=== PATIENT | female | born 1990 | race Caucasian/White ===

== ENCOUNTER 2020-10-13 15:30 | Emergency (ER) | payer SELFPAY ==
[~2020-10-13] VITALS: Ht 170.2 cm; Wt 59.1 kg
--- NOTE | 2020-10-13 16:41 | PHYS DOC ---
Adult General HPI HPI Patient is a 30-year-old female presents emergency department complaining of left lower pelvic pain for the past 4 days. Patient also reports a malodorous dark brown discharge for the past 4 days. Patient states the pain started after having unprotected sex. Patient reports her last menstrual period was 2 weeks a go with normal duration of flow. Patient is concerned about sexually transmitted diseases. Patient denies any rashes or lesions in the vaginal area. Patient denies any nausea, vomiting, abdominal pain, chest pain, shortness of breath, recent fever or chills. Patient denies any recent travel. Patient denies any other physical complaints or physical concerns. Patient reports a past medical history of a tubal ligation. Review of Systems Review of Systems 14 body systems of review of systems have been reviewed. See HPI for pertinent positives and negative responses, otherwise all other systems are negative, nonpertinent or noncontributory. Physical Exam Physical Exam Constitutional: Well developed, well nourished, no acute distress, non-toxic appearance. 30-year-old female in no apparent distress. HENT: Normocephalic, atraumatic, bilateral external ears normal, oropharynx moist, no oral exudates, nose normal. Eyes: PERRLA, EOMI, conjunctiva normal, no discharge. Neck: Normal range of motion, no tenderness, supple, no stridor. Cardiovascular:Heart rate regular rhythm, no murmur, heart sounds S1-S2. Lungs & Thorax: Bilateral breath sounds clear to auscultation no adventitious lung sounds appreciated. Abdomen: Bowel sounds normal, soft, no tenderness, no masses, no pulsatile masses. Pain to left lower quadrant area to palpation. See exam. Skin: Warm, dry, no erythema, no rash. Back: No tenderness, no CVA tenderness. Extremities: No tenderness, no cyanosis, no clubbing, ROM intact, no edema. Neurologic: Alert and oriented X 3, normal motor function, normal sensory function, no focal deficits noted. Psychologic: Affect normal, judgement normal, mood normal. : Pelvic exam performed with female registered nurse assistance, no lesions or rashes or abnormalities noted of the external vagina or adjacent structures, no discharge appreciated. Speculum exam noted brown foamy discharge along vaginal wolff, the cervical os was closed, no bleeding from the cervical os appreciated, STI cultures and wet prep obtained. Bimanual exam noted left adnexal tenderness. No right-sided adnexal tenderness appreciated. Patient tolerated pelvic exam procedure well. EKG EKG [] Radiology/Procedures Radiology/Procedures PATIENT: JESSICA GARG ACCOUNT: [id number] : 1990 LOCATION: ER AGE: 30 SEX: F EXAM STATUS: REG ER ORD. PHYSICIAN: JANETT AARON APRN REASON: LT PELVIC PAIN PROCEDURE: US PELVIS W/TV INDICATION: Reason: LT PELVIC PAIN / Spl. Instructions: / History: . Last menstrual period was 10/02/2020. COMPARISON: None available. TECHNIQUE: Transabdominal and endovaginal sonography was performed FINDINGS: The uterus measures 9.7 x 4.8 x 3.9 cm. The endometrium measures 0.5 cm on endovaginal images. There is no focal myometrial abnormality The right ovary measures 3.6 x 3.1 x 2.2 cm on endovaginal images. The left ovary measures 4 x 3.3 x 2.2 cm on endovaginal images. Flow seen to both ovaries. No evidence for ovarian torsion. Scattered follicles are seen bilaterally. Some of these small follicles are peripherally, PCOS is a consideration. There is trace free fluid. IMPRESSION: 1. No evidence for ovarian torsion. 2. Trace free fluid possibly physiologic. 3. Scattered follicles within the ovaries bilaterally, some of which are peripheral, may be seen with PCOS. Electronically signed by: Meng Quach MD (10/13/2020 5:41 PM) [facility] DICTATED AND SIGNED BY: MENG QUACH MD DATE: 10/13/20 173 CC: JANETT AARON APRN; PCP,NO ~MTH0 0 Heart Score C/O Chest Pain: No Risk Factors: Risk Factors: DM, Current or recent (<one month) smoker, HTN, HLP, family hi story of CAD, obesity. Risk Scores: Risk Factors: DM, Current or recent (<one month) smoker, HTN, HLP, family history of CAD, obesity. Course & Med Decision Making Course & Med Decision Making Pertinent Labs and Imaging studies reviewed. (See chart for details) 30-year-old female, vital signs reviewed, presents emergency department concerning left lower pelvic pain for the past 4 days. Physical exam concerning for STI versus PID versus left-sided ovarian torsion versus UTI. ER exam to rule out STIs/ovarian torsion/UTI/PID was initiated. Patient's pelvic exam concerning for PID. Malodorous dark brown foamy discharge along vaginal canal appreciated, STI cultures and wet prep were obtained and sent to lab. Wet prep did not reveal trichomonas, yeast, or clue cells, however related to patient's symptoms, malodorous discharge, and physical presentation during pelvic exam will start on Flagyl to treat PID. Will treat patient for gonorrhea/chlamydia related to patient's unprotected sex and high risk sexual practices along with physical presentation during pelvic exam. Patient's urine was infected with positive leukocyte esterase and nitrites. Will treat for UTI. Discussed with patient findings of pelvic examination, and positive urinary tract infection. Discussed with patient will treat for gonorrhea chlamydia in the emergency department, discussed with patient need for her to contact sexual partners to have them treated as well. Patient gave verbal understanding of discharge home instructions, safe sex practices, prescription medication for gonorrhea/chlamydia/PID/UTIs, follow-up with primary care soon for reevaluation of UTI symptoms. Return to ER precautions and concerns, patient was discharged home without incident. Dragon Disclaimer Dragon Disclaimer This electronic medical record was generated, in whole or in part, using a voice recognition dictation system. Departure Departure: Impression: Primary Impression: Pelvic inflammatory disease Additional Impressions: Sexually transmitted infection Urinary tract infection High risk sexual behavior Pelvic pain Abnormal abdominal ultrasound Disposition: HOME / SELF CARE / HOMELESS Condition: GOOD Referrals: PCP,JUAN (PCP) JOSSUE VINSON Patient Instructions: Urinary Tract Infection Additional Instructions: You are seen today in the emergency department for pelvic pain. A ultrasound w as performed of your pelvis transvaginally. There were no concerning findings of an ovarian torsion or ectopic , however there were signs of PCOS, I encourage you to follow-up with a [facility] for further investigation as this may be causing your pelvic pains. However, there were signs of sexually transmitted diseases, you were treated for gonorrhea and chlamydia today along with pelvic inflammatory disease. I encourage you to practice safe barrier protective sex, please contact your sexual partners to have them treated for sexually transmitted diseases. I have treated you today in the emergency department for gonorrhea and chlamydia along with sending prescriptions to [facility] here in [place] for antibiotics to cover PID, a urinary tract infection, and chlamydia. Please fill them and take them as directed. Please follow-up with your primary care doctor for reevaluation of symptoms, if you are unable to obtain a appointment with your primary care physician, I have provided PAULA Quintero for follow-up primary care. Please return to the emergency department for worsening symptoms or other concerns. EMERGENCY DEPARTMENT GENERAL DISCHARGE INSTRUCTIONS Thank you for coming to [facility] (ED) today and trusting us with you care. We trust that you had a positivie experience in our Emergency Department. If you wish to speak to the department management, you may call the director at [phone]. YOUR FOLLOW UP INSTRUCTIONS ARE FOLLOWS: 1. Do you have a private Doctor? If you do not have a private doctor, please ask for a resource list of physicians or clinics that may be able to assist you with follow up care. 2. The Emergency Physician has interpreted your x-rays. The X-Ray specialist will also review them. If there is a change in the findings, you will be notified in 48 hours when at all possible. 3. A lab test or culture has been done, your results will be reviewed and you will be notified if you need a change in treatment. ADDITIONAL INSTRUCTIONS AND INFORMATION: 1. Your care today has been supervised by a physician who is specially trained in emergency care. Many problems require more than one evaluation for a complete diagnosis and treatment. We recommend that you schedule your follow up appointment as recommended to ensure complete treatment of you illness or injury. If you are unable to obtain follow up care and continue to have a problem, or if your condition worsens, we recommend that you return to the ED. 2. We are not able to safely determine your condition over the phone nor are we able to give sound medical advice over the phone. For these safety reasons, if you call for medical advice we will ask you to come to the ED for further evaluation. 3. If you have any questions regarding these discharge instructions please call the ED at [phone]. SAFETY INFORMATION: In the interest of safety, wellness, and injury prevention; we encourage you to wear your sealbelt, if you smoke; quite smoking, and we encourage family to use a protective helmet for bicycling and other sporting events that present an increased risk for head injury. IF YOUR SYMPTOMS WORSEN OR NEW SYMPTOMS DEVELOP, OR YOU HAVE CONCERNS ABOUT YOUR CONDITION; OR IF YOUR CONDITION WORSENS WHILE YOU ARE WAITING FOR YOUR FOLLOW UP APPOINTMENT; EITHER CONTACT YOUR PRIMARY CARE DOCTOR, THE PHYSICIAN WHOSE NAME AND NUMBER YOU WERE GIVEN, OR RETURN TO THE ED IMMEDIATELY. Scripts Doxycycline Hyclate (DOXYCYCLINE HYCLATE) 100 Mg Capsule 1 CAP PO BID for STI for 14 Days, #28 CAP 0 Refills Prov: JANETT AARON APRN 10/13/20 Cephalexin (CEPHALEXIN) 500 Mg Capsule 1 CAP PO BID for UTI for 7 Days, #14 CAP 0 Refills Prov: JANETT AARON APRN 10/13/20 Metronidazole (FLAGYL) 500 Mg Tablet 1 TAB PO BID for PID, #14 TAB 0 Refills Prov: JANETT AARON APRN 10/13/20 Problem Qualifiers Additional Impressions: Urinary tract infection Urinary tract infection type: site unspecified Hematuria presence: without hematuria Qualified Codes: N39.0 - Urinary tract infection, site not specified High risk sexual behavior High risk sexual behavior type: heterosexual Qualified Codes: Z72.51 - High risk heterosexual behavior JANETT AARON APRN Oct 13, 2020 16:41
--- NOTE | 2020-10-13 17:43 | RAD ---
INDICATION: Reason: LT PELVIC PAIN / Spl. Instructions: / History: . Last menstrual period was 10/02. COMPARISON: None available. TECHNIQUE: Transabdominal and endovaginal sonography was performed FINDINGS: The uterus measures 9.7 x 4.8 x 3.9 cm. The endometrium measures 0.5 cm on endovaginal images. Ther e is no focal myometrial abnormality The right ovary measures 3.6 x 3.1 x 2.2 cm on endovaginal images. The left ovary measures 4 x 3.3 x 2.2 cm on endovaginal images. Flow seen to both ovaries. No evidence for ovarian torsion. Scatter ed follicles are seen bilaterally. Some of these small follicles are peripherally, PCOS is a consider ation. There is trace free fluid. IMPRESSION: 1. No evidence for ovarian torsion. 2. Trace free fluid possibly physiologic. 3. Scattered follicles within the ovaries bilaterally, some of which are peripheral, may be seen wit h PCOS. Electronically signed by: Meng Perez MD (10/13/2020 5:41 PM) [facility]
[2020-10-13 17:55] LABS: BASO # 0.1 x10^3/uL (0.0-0.2); BASO % 1 % (0-3); EOS # 0.1 x10^3/uL (0.0-0.7); EOS % 1 % (0-3); HEMATOCRIT 26.7 % (36.0-47.0); LYMPH # 1.6 x10^3/uL (1.0-4.8); LYMPH % 17 % (24-48); MEAN CORPUSCULAR HEMOGLOBIN 21 pg (25-35); MEAN CORPUSCULAR HGB CONC 30 g/dL (31-37); MEAN CORPUSCULAR VOLUME 71 fL (79-100); MONO # 0.8 x10^3/uL (0.0-1.1); MONO % 9 % (0-9); NEUT # 6.6 x10^3uL (1.8-7.7); NEUT % 73 % (31-73); PLATELET COUNT 457 x10^3/uL (140-400); RED BLOOD COUNT 3.75 x10^6/uL (3.50-5.40); RED CELL DISTRIBUTION WIDTH 17.9 % (11.5-14.5); WHITE BLOOD COUNT 9.1 x10^3/uL (4.0-11.0)
[2020-10-13 17:59] LABS: BACTERIA,URINE MANY /HPF (0-FEW); BILIRUBIN,URINE NEG (NEG); CLARITY,URINE CLOUDY; COLOR,URINE YELLOW; GLUCOSE,URINE NEG (NEG); NITRITE,URINE POS (NEG); RBC,URINE RARE /HPF (0-2); SQUAMOUS EPITHELIAL CELL,UR OCC /LPF; UROBILINOGEN,URINE 0.2 mg/dL (0.2 mg/dL)
[2020-10-13 18:07] LABS: ANION GAP 6 (6-14); BLOOD UREA NITROGEN 15 mg/dL (7-20); BUN/CREATININE RATIO 19 (6-20); CALCIUM 8.6 mg/dL (8.5-10.1); CARBON DIOXIDE 29 mmol/L (21-32); CHLORIDE 105 mmol/L (98-107); CREATININE 0.8 mg/dL (0.6-1.0); GFR 84.8; GLUCOSE 90 mg/dL (70-99); SODIUM 140 mmol/L (136-145)
[2020-10-13 18:14] LABS: ALBUMIN 3.3 g/dL (3.4-5.0); ALBUMIN/GLOBULIN RATIO 0.8 (1.0-1.7); ALK PHOS 128 U/L (46-116); ALT (SGPT) 20 U/L (14-59); AST (SGOT) 12 U/L (15-37); LIPASE 163 U/L (73-393); TOTAL PROTEIN 7.4 g/dL (6.4-8.2)
[2020-10-13 18:18] LABS: TOTAL BILIRUBIN < 0.1 mg/dL (0.2-1.0)
[2020-10-13] MEDS ORDERED: cefTRIAXone IM 500 MG VIAL. IM ONE (18:45)
[2020-10-13] MEDS ORDERED: DOXY100C2 PO (19:07)
[2020-10-13] MEDS ORDERED: CEPH500C PO (19:07)
[2020-10-13] MEDS ORDERED: METR500T PO (19:07)
[2020-10-13 19:45] VITALS: BP 116/72
[2020-10-13 21:49] LABS: ANISOCYTOSIS SLIGHT; MICROCYTOSIS MOD; PLT ESTIMATE ADEQUATE (ADEQUATE)
[2020-10-13 21:50] LABS: HYPOCHROMIA MOD
[2020-10-14 14:10] LABS: CHLAMYDIA PROBE Negative (Negative)
== END 2020-10-13 19:56 | disposition home or self-care (01) ==
LOC: ER 15:30
DX: N73.9 Female pelvic inflammatory disease, unspecified (principal); A64 Unspecified sexually transmitted disease; N39.0 Urinary tract infection, site not specified; R93.5 Abnormal findings on diagnostic imaging of other abdominal regions, including retroperitoneum; R10.2 Pelvic and perineal pain; Z72.51 High risk heterosexual behavior
CPT/HCPCS: 76830; 76856; 80053; 81001; 81025; 83690; 85025; 87086; 87491; 87591; 96372; 99284; J0696; Q0111

== ENCOUNTER 2020-12-21 13:21 | Emergency (ER) | payer SELFPAY ==
[~2020-12-21] VITALS: Ht 170.2 cm; Wt 59.0 kg
[~2020-12-21 13:21] MED LIST: CEPH500C PO; DOXY100C2 PO; METR500T PO
--- NOTE | 2020-12-21 13:56 | PHYS DOC ---
Past History Past Medical History: No Pertinent History Past Surgical History: Appendectomy, , Tubal ligation Alcohol Use: None General Adult EDM: Chief Complaint: PELVIC PAIN HPI: HPI: Patient is a 30-year-old female who presents to the ER today for vaginal bleeding and pelvic pain that has been going on since August. Patient reports that she was seen in this ER in October for the same symptoms and was told to follow-up with [facility] but was imprisoned and was unable to follow-up. Patient reports she was treated for a UTI approximately 2 months ago. She reports that the vaginal bleeding is dark red with dime sized clots. She reports saturating 1 pad today. She is reporting bilateral pelvic pain that she rates an 8 out of 10, no radiation of pain, describes the pain as a pressure, no treatment prior to arrival. She does admit a foul vaginal odor. Patient does have history trichomoniasis, gonorrhea, chlamydia, bacterial vaginosis and reports being treated. She denies any concerns for STDs, vaginal discharge, vaginal itching, nausea, vomiting, diarrhea, fevers, dysuria, urinary frequency and urgency. She is unsure of her last menstrual period due to the irregular vaginal bleeding. She does have a history of a tubal ligation. Review of Systems: Review of Systems: 14 body systems of the review of systems have been reviewed. See HPI for pertinent positive and negative responses, otherwise all other systems are negative, nonpertinent or noncontributory Allergies: Allergies: Allergies Coded Allergies Type Severity Reaction Last Updated Verified No Known Drug Allergies 12/21/20 No Physical Exam: PE: Constitutional: Well developed, well nourished, no acute distress, non-toxic appearance. [] HENT: Normocephalic, atraumatic, bilateral external ears normal, oropharynx moist, no oral exudates, nose normal. [] Eyes: PERRLA, EOMI, conjunctiva normal, no discharge. [] Neck: Normal range of motion, no tenderness, supple, no stridor. [] Cardiovascular:Heart rate tachycardic rhythm, no murmur [] Lungs & Thorax: Bilateral breath sounds clear to auscultation [] Abdomen: Bowel sounds normal, soft, no masses, no pulsatile masses, bilateral lower abdominal/pelvic tenderness with palpation. [] Skin: Warm, dry, no erythema, no rash, pale. [] Back: No tenderness, no CVA tenderness. [] Extremities: No tenderness, no cyanosis, no clubbing, ROM intact, no edema. [] Neurologic: Alert and oriented X 3, normal motor function, normal sensory function, no focal deficits noted. [] Psychologic: Affect normal, judgement normal, mood normal. [] Pelvic exam: Normal appearing external female genitalia, no abnormal discharge. Uterus is smooth, negative CMT, Significant dark red vaginal bleeding noted with clots, GC/chlam and wet prep swabs obtained, L. adnexal tenderness. Current Patient Data: Labs: Laboratory Tests Test 12/21/20 14:00 12/21/20 15:20 White Blood Count 4.5 x10^3/uL Red Blood Count 4.47 x10^6/uL Hemoglobin 8.6 g/dL Hematocrit 28.4 % Mean Corpuscular Volume 64 fL Mean Corpuscular Hemoglobin 19 pg Mean Corpuscular Hemoglobin Concent 30 g/dL Red Cell Distribution Width 20.0 % Platelet Count 281 x10^3/uL Neutrophils (%) (Auto) 76 % Lymphocytes (%) (Auto) 10 % Monocytes (%) (Auto) 14 % Eosinophils (%) (Auto) 1 % Basophils (%) (Auto) 1 % Neutrophils # (Auto) 3.4 x10^3uL Lymphocytes # (Auto) 0.4 x10^3/uL Monocytes # (Auto) 0.6 x10^3/uL Eosinophils # (Auto) 0.0 x10^3/uL Basophils # (Auto) 0.0 x10^3/uL Platelet Estimate Pending Maternal Serum HCG Beta Subunit < 1 mIU/mL Sodium Level 142 mmol/L Potassium Level 3.8 mmol/L Chloride Level 106 mmol/L Carbon Dioxide Level 25 mmol/L Anion Gap 11 Blood Urea Nitrogen 8 mg/dL Creatinine 0.8 mg/dL Estimated GFR (Cockcroft-Gault) 84.8 BUN/Creatinine Ratio 10 Glucose Level 86 mg/dL Calcium Level 8.3 mg/dL Total Bilirubin 0.2 mg/dL Aspartate Amino Transf (AST/SGOT) 14 U/L Alanine Aminotransferase (ALT/SGPT) 13 U/L Alkaline Phosphatase 91 U/L Total Protein 7.6 g/dL Albumin 3.5 g/dL Albumin/Globulin Ratio 0.9 Urine Collection Type Unknown Urine Color Yellow Urine Clarity Clear Urine pH 5.5 Urine Specific [place] >=1.030 Urine Protein Neg Urine Glucose (UA) Neg mg/dL Urine Ketones (Stick) 80 mg/dL Urine Blood Large Urine Nitrite Neg Urine Bilirubin Small Urine Urobilinogen Dipstick 0.2 mg/dL Urine Leukocyte Esterase Neg Urine RBC >40 /HPF Urine WBC 1-4 /HPF Urine Squamous Epithelial Cells Few /LPF Urine Bacteria Few /HPF Urine Mucus Marked /LPF Current Medications Medications (Trade) Dose Ordered Sig/Steph Route PRN Reason Start Time Stop Time Status Last Admin Dose Admin Sodium Chloride 1,000 ml @ 1,000 mls/hr 1X ONCE IV 12/21/20 14:30 12/21/20 15:29 DC 12/21/20 14:28 Ketorolac Tromethamine (Toradol 30mg Vial) 30 mg 1X ONCE IVP 12/21/20 16:45 12/21/20 16:47 DC 12/21/20 16:13 Vital Signs: Vital Signs Date Time Temp Pulse Resp B/P (MAP) Pulse Ox O2 Delivery O2 Flow Rate FiO2 12/21/20 13:30 99.4 127 18 115/79 97 Room Air EKG: EKG: [] Radiology/Procedures: Radiology/Procedures: PROCEDURE: US PELVIS W/TV INDICATION: Reason: pelvic pain, vag bleeding / Spl. Instructions: / History: COMPARISON: September 2020 TECHNIQUE: Grayscale and color ultrasound images uterus and adnexa. Transabdominal and transvaginal images obtained. Transvaginal images were needed to better visualize structures that were limited on transabdominal imaging. FINDINGS: Uterus: 110 x 46 x 44 mm. 14 mm endometrial stripe. Uterus is heterogenous in appearance. Right Ovary: 32 x 21 x 16 mm. Left Ovary: Not visualized secondary to overlying bowel gas. Small free fluid. IMPRESSION: * Heterogeneity of the myometrium. Causes such as uterine fibroid or adenomyosis within differential. * Vascular flow seen to the right ovary. The left ovary is obscured. Electronically signed by: Monique Aggarwal MD (12/21/2020 4:14 PM) [id number] DICTATED AND SIGNED BY: MONIQUE AGGARWAL MD DATE: 12/21/20 [id number] CC: KMEI RIBEIRO DO; ENRIQUETA HUGHES SUTURE WINDER HAND; PCP,NO ~MTH0 0 Heart Score: C/O Chest Pain: No Risk Factors: Risk Factors: DM, Current or recent (<one month) smoker, HTN, HLP, family history of CAD, obesity. Risk Scores: Score 0 - 3: 2.5% MACE over next 6 weeks - Discharge Home Score 4 - 6: 20.3% MACE over next 6 weeks - Admit for Clinical Observation Score 7 - 10: 72.7% MACE over next 6 weeks - Early Invasive Strategies Course & Med Decision Making: Course & Med Decision Making Pertinent Labs and Imaging studies reviewed. (See chart for details) Patient is a 30-year-old female being seen in the ER today for vaginal bleeding and pelvic pain since August. Patient was seen in this ER in September for similar complaints and had blood work and ultrasound performed. A CBC, CMP, type and screen, UA, pelvic exam with GC/chlamydia and wet prep performed. Upon examination there was significant dark red bleeding with clots. Patient also had left adnexal tenderness. Patient was tachycardic in the ER today and was given 1 L of normal saline, following administration of IV fluids patient's heart rate has decreased. STI testing was pending, patient will be notified of results when available. Hemoglobin was 8.6, hematocrit 28.4, no elevated white blood cell count, CMP unremarkable. UA was negative for UTI. A pelvic ultrasound was performed. Which showed uterine heterogeneity which may be due to uterine fibroid, the left ovary was not visualized but the right ovary showed good blood flow. Spoke to Dr. Zhao at [facility] regarding patient's case. He advised that if patient's pain level can be decreased to a tolerable level she could be discharged home to follow-up with him outpatient. He advised me to prescribe patient Provera 10 mg twice daily until she follows up with him in office. I spoke with patient and her pain has decreased after administration of pain medication in the ER. She is agreeable to care plan. Was given follow-up information. [place] Disclaimer: [place]alli Disclaimer: This electronic medical record was generated, in whole or in part, using a voice recognition dictation system. Departure Departure: Impression: Primary Impression: Vaginal bleeding, abnormal Disposition: HOME / SELF CARE / HOMELESS Condition: GOOD Referrals: PCP,NO (PCP) Patient Instructions: Uterine Bleeding, Dysfunctional Additional Instructions: Please follow-up with Dr. Zhao at [facility]. His office phone number is . You can take ibuprofen or naproxen for your pain. You are receiving a prescription for Provera to take 1 tablet twice a day until you follow-up with Dr. Zhao. This medication should help decrease or stop your bleeding. We are not sure what is causing your vaginal bleeding at this time but it is possible that you have a uterine fibroid. In the ER today you were also tested for STIs. You will receive a phone call in approximately 2 to 3 days with the results of your STI testing. Please avoid sexual intercourse until the results of these. You need to return to the ER immediately if you develop worsening pain, heavy vaginal bleeding (greater than 1 pad an hour), chest pain, shortness of breath, excessive fatigue, lightheadedness, or any new or concerning symptoms. EMERGENCY DEPARTMENT GENERAL DISCHARGE INSTRUCTIONS Thank you for coming to [facility] (ED) today and trusting us with you care. We trust that you had a positivie experience in our Emergency Department. If you wish to speak to the department management, you may call the director at [phone]. YOUR FOLLOW UP INSTRUCTIONS ARE FOLLOWS: 1. Do you have a private Doctor? If you do not have a private doctor, please ask for a resource list of physicians or clinics that may be able to assist you with follow up care. 2. The Emergency Physician has interpreted your x-rays. The X-Ray specialist will also review them. If there is a change in the findings, you will be notified in 48 hours when at all possible. 3. A lab test or culture has been done, your results will be reviewed and you will be notified if you need a change in treatment. ADDITIONAL INSTRUCTIONS AND INFORMATION: 1. Your care today has been supervised by a physician who is specially trained in emergency care. Many problems require more than one evaluation for a complete diagnosis and treatment. We recommend that you schedule your follow up appointment as recommended to ensure complete treatment of you illness or injury. If you are unable to obtain follow up care and continue to have a problem, or if your condition worsens, we recommend that you return to the ED. 2. We are not able to safely determine your condition over the phone nor are we able to give sound medical advice over the phone. For these safety reasons, if you call for medical advice we will ask you to come to the ED for further evaluation. 3. If you have any questions regarding these discharge instructions please call the ED at [phone]. SAFETY INFORMATION: In the interest of safety, wellness, and injury prevention; we encourage you to wear your sealbelt, if you smoke; quite smoking, and we encourage family to use a protective helmet for bicycling and other sporting events that present an increased risk for head injury. IF YOUR SYMPTOMS WORSEN OR NEW SYMPTOMS DEVELOP, OR YOU HAVE CONCERNS ABOUT YOUR CONDITION; OR IF YOUR CONDITION WORSENS WHILE YOU ARE WAITING FOR YOUR FOLLOW UP APPOINTMENT; EITHER CONTACT YOUR PRIMARY CARE DOCTOR, THE PHYSICIAN WHOSE NAME AND NUMBER YOU WERE GIVEN, OR RETURN TO THE ED IMMEDIATELY. Scripts Medroxyprogesterone Acetate (PROVERA) 10 Mg Tablet 10 MG PO BID for vaginal bleeding for 14 Days, #28 TAB 0 Refills Prov: ENRIQUETA HUGHES APRN 12/21/20 ENRIQUETA HUGHES APRN Dec 21, 2020 13:56
[2020-12-21 14:21] LABS: BASO % 1 % (0-3); EOS % 1 % (0-3); HEMATOCRIT 28.4 % (36.0-47.0); HEMOGLOBIN 8.6 g/dL (12.0-15.5); LYMPH # 0.4 x10^3/uL (1.0-4.8); LYMPH % 10 % (24-48); MEAN CORPUSCULAR HEMOGLOBIN 19 pg (25-35); MEAN CORPUSCULAR HGB CONC 30 g/dL (31-37); MEAN CORPUSCULAR VOLUME 64 fL (79-100); MONO # 0.6 x10^3/uL (0.0-1.1); MONO % 14 % (0-9); NEUT # 3.4 x10^3uL (1.8-7.7); NEUT % 76 % (31-73); PLATELET COUNT 281 x10^3/uL (140-400); RED BLOOD COUNT 4.47 x10^6/uL (3.50-5.40); WHITE BLOOD COUNT 4.5 x10^3/uL (4.0-11.0)
[2020-12-21 14:27] LABS: CALCIUM 8.3 mg/dL (8.5-10.1); CREATININE 0.8 mg/dL (0.6-1.0); GFR 84.8; POTASSIUM 3.8 mmol/L (3.5-5.1)
[2020-12-21] MEDS ORDERED: IV NORMAL SALINE 1,000ML 1,000 ML IV ONE (14:30)
[2020-12-21 14:33] LABS: ALBUMIN 3.5 g/dL (3.4-5.0); ALBUMIN/GLOBULIN RATIO 0.9 (1.0-1.7); TOTAL BILIRUBIN 0.2 mg/dL (0.2-1.0); TOTAL PROTEIN 7.6 g/dL (6.4-8.2)
[2020-12-21 16:13] LABS: BILIRUBIN,URINE SMALL (NEG); CLARITY,URINE CLEAR; COLOR,URINE YELLOW; GLUCOSE,URINE NEG (NEG); NITRITE,URINE NEG (NEG); UROBILINOGEN,URINE 0.2 mg/dL (0.2 mg/dL)
[2020-12-21 16:15] LABS: RBC,URINE >40 /HPF (0-2)
[2020-12-21 16:16] LABS: BACTERIA,URINE FEW /HPF (0-FEW); SQUAMOUS EPITHELIAL CELL,UR FEW /LPF
--- NOTE | 2020-12-21 16:16 | RAD ---
INDICATION: Reason: pelvic pain, vag bleeding / Spl. Instructions: / History: COMPARISON: September 2020 TECHNIQUE: Grayscale and color ultrasound images uterus and adnexa. Transabdominal and transvaginal images obtained. Transvaginal images were needed to better visualize structures that were limited on transabdominal imaging. FINDINGS: Uterus: 110 x 46 x 44 mm. 14 mm endometrial stripe. Uterus is heterogenous in appearance. Right Ovary: 32 x 21 x 16 mm. Left Ovary: Not visualized secondary to overlying bowel gas. Small free fluid. IMPRESSION: * Heterogeneity of the myometrium. Causes such as uterine fibroid or adenomyosis within differentia l. * Vascular flow seen to the right ovary. The left ovary is obscured. Electronically signed by: Mc Mathews MD (12/21/2020 4:14 PM) [id number]
[2020-12-21] MEDS ORDERED: MEDR10TA PO (16:43)
[2020-12-21] MEDS ORDERED: KETOROLAC 30 MG/ML VIAL. IVP ONE (16:45)
[2020-12-21 17:11] VITALS: BP 117/73
[2020-12-21 17:16] LABS: PLT ESTIMATE ADEQUATE (ADEQUATE)
[2020-12-21 17:17] LABS: ANISOCYTOSIS SLIGHT; MICROCYTOSIS MOD
[2020-12-21 17:18] LABS: HYPOCHROMIA MOD; OVALOCYTES PRESENT
[2020-12-22 21:12] LABS: CHLAMYDIA PROBE Negative (Negative)
== END 2020-12-21 17:11 | disposition home or self-care (01) ==
LOC: ER 13:21
DX: N93.8 Other specified abnormal uterine and vaginal bleeding (principal); R10.2 Pelvic and perineal pain; Z87.440 Personal history of urinary (tract) infections; Z90.89 Acquired absence of other organs; Z98.890 Other specified postprocedural states; Z98.51 Tubal ligation status
CPT/HCPCS: 36415; 76830; 76856; 80053; 81001; 84702; 85025; 86850; 86900; 86901; 87491; 87591; 96361; 96374; 99285; J1885; J7030; Q0111

== ENCOUNTER 2020-12-29 14:45 | Emergency (ER) | payer SELFPAY ==
[~2020-12-29] VITALS: Ht 170.2 cm; Wt 59.0 kg
[~2020-12-29 14:45] MED LIST changes: +MEDR10TA PO
[2020-12-29] MEDS ORDERED: ONDANSETRON PF 4 MG/2 ML VIAL. IVP ONE (15:15)
[2020-12-29] MEDS ORDERED: MORPHINE SULFATE 4 MG/ML DISP.SYRIN. IV ONE (15:15)
[2020-12-29] MEDS ORDERED: IV NORMAL SALINE 1,000ML 1,000 ML IV ONE (15:15)
--- NOTE | 2020-12-29 15:35 | PHYS DOC ---
Past History Past Medical History: No Pertinent History (REJI LOPEZ APRN) Past Surgical History: Appendectomy, , Tubal ligation (REJI LOPEZ APRN) Alcohol Use: None (REJI LOPEZ APRN) General Adult EDM: Chief Complaint: MULTIPLE COMPLAINTS HPI: HPI: Patient is a 30-year-old female who presents with left-sided chest pain that radiates into her neck and back. Patient reports that symptoms started 3 days ago. She has also reporting shortness of breath with symptoms along with diaphoresis. Denies nausea/vomiting/diarrhea, cough. Denies recent illness. Patient states "my mom when she was in her 20s of a heart attack". Patient denies medical history. Denies history of drug use. (REJI LOPEZ APRN) Review of Systems: Review of Systems: Constitutional: Denies fever or chills Eyes: Denies change in visual acuity HENT: Denies nasal congestion or sore throat Respiratory: Denies cough. Reports shortness of breath Cardiovascular: Reports chest pain, denies edema GI: Denies abdominal pain, nausea, vomiting, bloody stools or diarrhea : Denies dysuria Musculoskeletal: Denies back pain or joint pain Integument: Denies rash Neurologic: Reports headache, denies focal weakness or sensory changes Endocrine: Denies polyuria or polydipsia Lymphatic: Denies swollen glands Psychiatric: Denies depression or anxiety (REJI LOPEZ APRN) Current Medications: Current Meds: Current Medications Medications (Trade) Dose Ordered Sig/Steph Start Time Stop Time Status Last Admin Dose Admin Morphine Sulfate (Morphine 4mg Syringe) 4 mg 1X ONCE 12/29/20 15:15 12/29/20 15:19 DC Ondansetron HCl (Zofran) 4 mg 1X ONCE 12/29/20 15:15 12/29/20 15:19 DC Sodium Chloride 1,000 ml @ 1,000 mls/hr 1X ONCE 12/29/20 15:15 12/29/20 16:14 (REJI LOPEZ APRN) Allergies: Allergies: Allergies Coded Allergies Type Severity Reaction Last Updated Verified No Known Drug Allergies 12/21/20 No (REJI LOPEZ APRN) Physical Exam: PE: Constitutional: Well developed, well nourished, no acute distress, non-toxic appearance. [] HENT: Normocephalic, atraumatic, bilateral external ears normal, oropharynx moist, no oral exudates, nose normal. [] Eyes: PERRLA, EOMI, conjunctiva normal, no discharge. [] Neck: Normal range of motion, no tenderness, supple, no stridor. [] Cardiovascular:Heart rate tachycardia, no murmur [] Lungs & Thorax: Bilateral breath sounds clear to auscultation [] Abdomen: Bowel sounds normal, soft, no tenderness, no masses, no pulsatile masses. [] Skin: Warm, dry, no erythema, no rash. [] Back: No tenderness, no CVA tenderness. [] Extremities: No tenderness, no cyanosis, no clubbing, ROM intact, no edema. [] Neurologic: Alert and oriented X 3, normal motor function, normal sensory function, no focal deficits noted. [] Psychologic: Affect normal, judgement normal, mood normal. [] (REJI LOPEZ APRN) Current Patient Data: Vital Signs: Vital Signs Date Time Temp Pulse Resp B/P (MAP) Pulse Ox O2 Delivery O2 Flow Rate FiO2 12/29/20 15:04 98.1 136 16 130/75 99 Room Air (REJI LOPEZ APRN) EKG: EKG: Sinus tachycardia. Heart rate [address] elevation. [] Second EKG completed at 1653, heart rate 83 bpm. Sinus rhythm. Read by Dr. Agustin. No ST elevation. (REJI LOPEZ APRN) Radiology/Procedures: Radiology/Procedures: [] EXAMINATION: XR CHEST 1V CLINICAL HISTORY: Chest pain EXAM DATE/TIME: 12/29/2020 3:14 PM COMPARISON: None FINDINGS: Lines, Tubes, and Devices: None. Cardiomediastinal Silhouette: Within normal limits. Lungs and Pleura: No evidence of focal airspace consolidation or pleural effusion. Pulmonary vasculature unremarkable. Bones and Soft Tissues: No acute osseous abnormality. IMPRESSION: No evidence of acute cardiopulmonary abnormality. Electronically signed by: Panchito Matson DO (12/29/2020 3:49 PM) [id number] (REJI LOPEZ APRN) Heart Score: C/O Chest Pain: Yes HEART Score for Chest Pain: HEART Score for Chest Pain Response (Comments) Value History Slighlty/Non-Suspicious 0 ECG Normal 0 Age < 45 0 Risk Factors 1 or 2 Risk Factors 1 Troponin >3 x Normal Limit 2 Total 3 Risk Factors: Risk Factors: DM, Current or recent (<one month) smoker, HTN, HLP, family history of CAD, obesity. Risk Scores: Score 0 - 3: 2.5% MACE over next 6 weeks - Discharge Home Score 4 - 6: 20.3% MACE over next 6 weeks - Admit for Clinical Observation Score 7 - 10: 72.7% MACE over next 6 weeks - Early Invasive Strategies (REJI LOPEZ APRN) Course & Med Decision Making: Course & Med Decision Making Pertinent Labs and Imaging studies reviewed. (See chart for details) [] 30-year-old female who presents with neck pain and left-sided chest pain that radiates to her back. Symptoms started 3 days ago. Patient also reports of shortness of breath and diaphoresis with symptoms. Denies nausea/vomiting. Patient denies cardiac history. Denies drug use. Patient states that her mother in her 20s of an MS. Patient has not received the Covid vaccination. Patient is tachycardia on arrival, heart rate 110. Patient given 4 mg of morphine and 4 mg of Zofran. Patient given NS bolus. EKG shows heart rate [address] elevation. On reassessment patient's symptoms have improved and denying chest pain at this time. Troponins elevated 1.82. D-dimer is elevated at 1.73. Heart score of 3. Patient given 324 of aspirin. Heparin bolus and drip started. Second EKG completed. Shows sinus rhythm. Heart rate [address] elevation at this time. Second troponin is elevated at 2.253. UDS positive for methamphetamines, opiates, marijuana. Dr. Trevino was consulted and will see patient in the morning for cath. Dr. Dinh will accept patient for NSTEMI at [place]. Patient is hemodynamically stable upon transfer to [place]. (REJI LOPEZ APRN) Dragon Disclaimer: Dragon Disclaimer: This electronic medical record was generated, in whole or in part, using a voice recognition dictation system. (REJI LOPEZ APRN) Attending Co-Sign The patient was seen and interviewed as well as examined at the bedside. The chart was reviewed. The case was discussed. Agree with the plan of care. (WALLACE AGUSTIN DO) Departure Departure: Impression: Primary Impression: NSTEMI (non-ST elevated myocardial infarction) Additional Impressions: Chest pain Qualified Codes: R07.89 - Other chest pain Methamphetamine abuse Drug abuse Disposition: 02 SHORT TERM HOSPITAL Admitting Physician: Teofilo Dinh (REJI LOPEZ APRN) Condition: STABLE Referrals: PCP,JUAN (PCP) REJI LOPZE APRN Dec 29, 2020 15:34 WALLACE AGUSTIN DO Dec 30, 2020 06:26
[2020-12-29 15:39] LABS: BASO % 0 % (0-3); EOS # 0.1 x10^3/uL (0.0-0.7); EOS % 1 % (0-3); HEMATOCRIT 29.3 % (36.0-47.0); HEMOGLOBIN 8.8 g/dL (12.0-15.5); LYMPH # 1.4 x10^3/uL (1.0-4.8); LYMPH % 15 % (24-48); MEAN CORPUSCULAR HEMOGLOBIN 19 pg (25-35); MEAN CORPUSCULAR HGB CONC 30 g/dL (31-37); MEAN CORPUSCULAR VOLUME 64 fL (79-100); MONO # 0.7 x10^3/uL (0.0-1.1); MONO % 7 % (0-9); NEUT % 76 % (31-73); PLATELET COUNT 339 x10^3/uL (140-400); RED BLOOD COUNT 4.61 x10^6/uL (3.50-5.40); RED CELL DISTRIBUTION WIDTH 20.3 % (11.5-14.5); WHITE BLOOD COUNT 9.1 x10^3/uL (4.0-11.0)
[2020-12-29 15:51] LABS: CALCIUM 8.8 mg/dL (8.5-10.1); CREATININE 0.7 mg/dL (0.6-1.0); GFR 98.9; POTASSIUM 3.8 mmol/L (3.5-5.1)
--- NOTE | 2020-12-29 15:52 | RAD ---
EXAMINATION: XR CHEST 1V CLINICAL HISTORY: Chest pain EXAM DATE/TIME: 12/29/2020 3:14 PM COMPARISON: None FINDINGS: Lines, Tubes, and Devices: None. Cardiomediastinal Silhouette: Within normal limits. Lungs and Pleura: No evidence of focal airspace consolidation or pleural effusion. Pulmonary vasculat ure unremarkable. Bones and Soft Tissues: No acute osseous abnormality. IMPRESSION: No evidence of acute cardiopulmonary abnormality. Electronically signed by: Panchito Matson DO (12/29/2020 3:49 PM) [id number]
[2020-12-29 15:56] LABS: ALBUMIN 3.6 g/dL (3.4-5.0); ALBUMIN/GLOBULIN RATIO 0.9 (1.0-1.7); TOTAL BILIRUBIN 0.3 mg/dL (0.2-1.0); TOTAL PROTEIN 7.8 g/dL (6.4-8.2)
[2020-12-29] MEDS ORDERED: HEPARIN for IV BOLUS 10,000 UNIT/10 ML VIAL. IV ONE (16:30)
[2020-12-29] MEDS ORDERED: HEPARIN for IV BOLUS 10,000 UNIT/10 ML VIAL. IV PRN (16:30)
[2020-12-29] MEDS ORDERED: ASPIRIN CHEWABLE 81 MG TABLET. PO ONE (16:30)
[2020-12-29 16:55] LABS: ANISOCYTOSIS MOD; HYPOCHROMIA MOD; MICROCYTOSIS MOD; PLT ESTIMATE ADEQUATE (ADEQUATE)
[2020-12-29] MEDS: HEPARIN 25,000UTS/250ML PREMIX 250 ML IV PRN ×2 (16:56→16:58)
[2020-12-29 21:13] LABS: BARBITURATES NEG (NEG); BENZODIAZEPINES NEG (NEG); BILIRUBIN,URINE SMALL (NEG); CANNABINOIDS POS (NEG); CLARITY,URINE CLOUDY; COCAINE NEG (NEG); COLOR,URINE AMBER; GLUCOSE,URINE NEG (NEG); METHADONE NEG (NEG); NITRITE,URINE NEG (NEG); OPIATES POS (NEG); PHENCYCLIDINE NEG (NEG); UROBILINOGEN,URINE 0.2 mg/dL (0.2 mg/dL)
[2020-12-29 21:14] LABS: BACTERIA,URINE FEW /HPF (0-FEW); RBC,URINE RARE /HPF (0-2); SQUAMOUS EPITHELIAL CELL,UR FEW /LPF; WBC,URINE OCC /HPF (0-4)
[2020-12-29 21:15] LABS: AMPHETAMINE/METHAMPHETAMINE POS (NEG)
[2020-12-29 21:35] VITALS: BP 107/72
--- NOTE | 2020-12-30 00:48 | EKG ---
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
--- NOTE | 2020-12-30 06:45 | EKG ---
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
== END 2020-12-29 21:39 | disposition short-term general hospital (02) ==
LOC: ER 14:45
DX: I21.4 Non-ST elevation (NSTEMI) myocardial infarction (principal); F15.10 Other stimulant abuse, uncomplicated; R07.89 Other chest pain
CPT/HCPCS: 36415; 71045; 80053; 80307; 81001; 81025; 84484; 85025; 85379; 85610; 85730; 93005; 96361; 96365; 96366; 96375; 96376; 99285; J1644; J2270; J2405; J7030

== ENCOUNTER 2021-01-17 14:03 | Inpatient (IN) | payer SELFPAY ==
[2021-01-17] VITALS (11 sets, daily range): BP systolic 83–96; BP diastolic 50–66
[~2021-01-17] VITALS: Ht 170.2 cm; Wt 61.7 kg
[~2021-01-17 14:03] MED LIST changes: -DOXY100C2 PO; +DOXY100C3 PO
[2021-01-17 14:47] LABS: BASO # 0.1 x10^3/uL (0.0-0.2); BASO % 1 % (0-3); EOS # 0.1 x10^3/uL (0.0-0.7); EOS % 1 % (0-3); LYMPH # 1.5 x10^3/uL (1.0-4.8); LYMPH % 20 % (24-48); MEAN CORPUSCULAR HEMOGLOBIN 21 pg (25-35); MEAN CORPUSCULAR HGB CONC 31 g/dL (31-37); MEAN CORPUSCULAR VOLUME 69 fL (79-100); MONO # 0.6 x10^3/uL (0.0-1.1); MONO % 9 % (0-9); NEUT # 5.2 x10^3uL (1.8-7.7); NEUT % 70 % (31-73); PLATELET COUNT 533 x10^3/uL (140-400); RED BLOOD COUNT 2.85 x10^6/uL (3.50-5.40); RED CELL DISTRIBUTION WIDTH 24.5 % (11.5-14.5); WHITE BLOOD COUNT 7.4 x10^3/uL (4.0-11.0)
[2021-01-17 14:53] LABS: HEMATOCRIT 19.5 % (36.0-47.0)
--- NOTE | 2021-01-17 14:57 | PHYS DOC ---
Past History Past Medical History: No Pertinent History Past Surgical History: Appendectomy, , Tubal ligation Additional Past Surgical Histo: stents in heart Alcohol Use: None General Adult EDM: Chief Complaint: VAGINAL BLEEDING HPI: HPI: Patient is a 30-year-old female coming in for possible anemia. Patient states she has had heavy vaginal bleeding for the past 4 to 5 months. Was seen about 1 month ago and diagnosed with anemia with a hemoglobin of 4.5 and transfuse. Also over the past month has been admitted to [place] for an NSTEMI with 2 cardiac stents placed. Has a history of mother with ID in her 20s. Patient states she does have a history of using methamphetamines but denies any use recently. Patient states that she has infrequently used her THC pen to help with sleeping. Patient states she is getting lightheaded when she goes to stand or exert herself. Review of Systems: Review of Systems: Constitutional: Denies fever or chills Eyes: Denies change in visual acuity HENT: Denies nasal congestion or sore throat Respiratory: Denies cough or shortness of breath Cardiovascular: Denies chest pain or edema GI: Denies abdominal pain, nausea, vomiting, bloody stools or diarrhea : Denies dysuria Musculoskeletal: Denies back pain or joint pain Integument: Denies rash Neurologic: Denies headache, focal weakness or sensory changes Endocrine: Denies polyuria or polydipsia Lymphatic: Denies swollen glands Psychiatric: Denies depression or anxiety Allergies: Allergies: Allergies Coded Allergies Type Severity Reaction Last Updated Verified No Known Drug Allergies 12/21/20 No Physical Exam: PE: Constitutional: Well developed, well nourished, no acute distress, non-toxic appearance. [] HENT: Normocephalic, atraumatic, bilateral external ears normal, nose normal. [] Eyes: PERRLA, conjunctiva normal, no discharge. [] Neck: No rigidity, supple, no stridor. [] Cardiovascular: Regular rate and rhythm, brisk cap refill [] Lungs & Thorax: Non labored symmetric respirations, no tachypnea or respiratory distress [] Abdomen: Soft, nondistended. Skin: Warm, dry, no erythema, no rash. [] Back: Unremarkable Extremities: No deformities, range of motion grossly intact, no lower extremity edema [] Neurologic: Alert and oriented X 3, no focal deficits noted. [] Psychologic: Affect normal, judgement normal, mood normal. [] Current Patient Data: Labs: Laboratory Tests Test 01/17/21 14:20 White Blood Count 7.4 x10^3/uL (4.0-11.0) Red Blood Count 2.85 x10^6/uL (3.50-5.40) L Hemoglobin 6.0 g/dL (12.0-15.5) *L Hematocrit 19.5 % (36.0-47.0) *L Mean Corpuscular Volume 69 fL (79-100) L Mean Corpuscular Hemoglobin 21 pg (25-35) L Mean Corpuscular Hemoglobin Concent 31 g/dL (31-37) Red Cell Distribution Width 24.5 % (11.5-14.5) H Platelet Count 533 x10^3/uL (140-400) H Neutrophils (%) (Auto) 70 % (31-73) Lymphocytes (%) (Auto) 20 % (24-48) L Monocytes (%) (Auto) 9 % (0-9) Eosinophils (%) (Auto) 1 % (0-3) Basophils (%) (Auto) 1 % (0-3) Neutrophils # (Auto) 5.2 x10^3uL (1.8-7.7) Lymphocytes # (Auto) 1.5 x10^3/uL (1.0-4.8) Monocytes # (Auto) 0.6 x10^3/uL (0.0-1.1) Eosinophils # (Auto) 0.1 x10^3/uL (0.0-0.7) Basophils # (Auto) 0.1 x10^3/uL (0.0-0.2) Vital Signs: Vital Signs Date Time Temp Pulse Resp B/P (MAP) Pulse Ox O2 Delivery O2 Flow Rate FiO2 01/17/21 14:33 97.5 120 22 110/72 99 EKG: EKG: Sinus tachycardia, heart rate 120 bpm, normal axis, no ST elevation or depression, normal intervals, no ectopy. [] Radiology/Procedures: Radiology/Procedures: [] Heart Score: C/O Chest Pain: No HEART Score for Chest Pain: HEART Score for Chest Pain Response (Comments) Value History Slighlty/Non-Suspicious 0 ECG Normal 0 Age < 45 0 Risk Factors >3 Risk Factors or Hx CAD 2 Troponin < Normal Limit 0 Total 2 Risk Factors: Risk Factors: DM, Current or recent (<one month) smoker, HTN, HLP, family history of CAD, obesity. Risk Scores: Score 0 - 3: 2.5% MACE over next 6 weeks - Discharge Home Score 4 - 6: 20.3% MACE over next 6 weeks - Admit for Clinical Observation Score 7 - 10: 72.7% MACE over next 6 weeks - Early Invasive Strategies Course & Med Decision Making: Course & Med Decision Making Discussed with Dr. Rebollar, patient will need transfusion. He states that she needs a hysterectomy patient is willing but due to her testing positive for Covid 1 month ago they must wait 3-4 more weeks before she is able to be sc heduled to the OR per their protocols. He does not feel she needs to be transferred to [place] for any gynecologic interventions. 2 units ordered and admitted to Dr. Fabrizio Lennon Disclaimer: [place] Disclaimer: This electronic medical record was generated, in whole or in part, using a voice recognition dictation system. Departure Departure: Impression: Primary Impression: Vaginal bleeding, abnormal Additional Impression: Anemia Disposition: ADMITTED INPATIENT Admitting Physician: Teofilo Dinh Condition: GUARDED Referrals: PCP,NO (PCP) SHAYNA ALBERTS MD Jan 17, 2021 14:57
[2021-01-17 15:04] LABS: CALCIUM 8.5 mg/dL (8.5-10.1); CREATININE 0.8 mg/dL (0.6-1.0); GFR 84.8
[2021-01-17 15:09] LABS: BARBITURATES NEG (NEG); BENZODIAZEPINES NEG (NEG); CANNABINOIDS POS (NEG); COCAINE NEG (NEG); METHADONE NEG (NEG); OPIATES NEG (NEG); PHENCYCLIDINE NEG (NEG)
[2021-01-17 15:11] LABS: AMPHETAMINE/METHAMPHETAMINE NEG (NEG)
[2021-01-17 15:15] LABS: ALBUMIN 3.3 g/dL (3.4-5.0); ALBUMIN/GLOBULIN RATIO 0.8 (1.0-1.7); MAGNESIUM 2.1 mg/dL (1.8-2.4); TOTAL BILIRUBIN 0.2 mg/dL (0.2-1.0); TOTAL PROTEIN 7.6 g/dL (6.4-8.2)
[2021-01-17] MEDS ORDERED: IV NORMAL SALINE 1,000ML 1,000 ML IV ONE (15:15)
[2021-01-17 15:19] LABS: BACTERIA,URINE 0 /HPF (0-FEW); BILIRUBIN,URINE NEG (NEG); CLARITY,URINE HAZY; COLOR,URINE YELLOW; GLUCOSE,URINE NEG (NEG); NITRITE,URINE NEG (NEG); RBC,URINE >40 /HPF (0-2); SQUAMOUS EPITHELIAL CELL,UR MOD /LPF; UROBILINOGEN,URINE 0.2 mg/dL (0.2 mg/dL)
[2021-01-17] MEDS ORDERED: ACETAMINOPHEN 325 MG TABLET PO PRN (15:30)
[2021-01-17] MEDS ORDERED: ONDANSETRON PF 4 MG/2 ML VIAL. IVP PRN (15:30)
[2021-01-17 15:56] LABS: ANISOCYTOSIS MOD; HYPOCHROMIA MOD; PLT ESTIMATE INCREASED (ADEQUATE)
[2021-01-17 15:58] LABS: MICROCYTOSIS MOD
[2021-01-17 15:59] LABS: OVALOCYTES FEW
--- NOTE | 2021-01-17 16:15 | EKG ---
[address] [address] Test Date: 2021-01-17 Test Time: 14:19:34 Pat Name: JESSICA GARG Department: Room: Gender: F Butcher Head: МАРИЯ : 1990 Requested By: SHAYNA ALBERTS Order Number: [id number] Reading MD: Measurements Intervals [place] Rate: 120 P: 17 CO: 106 QRS: 8 QRSD: 74 T: 66 QT: 300 QTc: 429 Interpretive Statements SINUS TACHYCARDIA QRS(T) CONTOUR ABNORMALITY CONSISTENT WITH ANTEROSEPTAL INFARCT AGE UNDETERMINED ABNORMAL ECG RI6.02 No previous ECG available for comparison
--- NOTE | 2021-01-17 18:36 | HP ---
ADMIT DATE: 01/17/2021 HISTORY OF PRESENT ILLNESS: The patient is a 30-year-old female patient who presented to the emergency room of [facility] with vaginal bleeding. The patient stated that she has had heavy vaginal bleeding for the past 4-5 months, was seen about 1 month ago, diagnosed with anemia and hemoglobin 4.5, and was transfused at [facility], immediately after she had a non-ST segment elevation with a stent to her left anterior descending artery. At that time, she was started on Plavix and aspirin and she was seen at that time by the support director. She was also COVID positive at that time and therefore, the support director did not pursue a hysterectomy, which is the right treatment for her given that she has already had 5 children and she completed her family. At that time, she was discharged home to continue on Provera together with Plavix and aspirin together with statin and Coreg. PAST MEDICAL HISTORY: Significant for PCI and stent deployment as well as C-sections x4, tubal ligation. ALLERGIES: She has no known drug allergies. She is on aspirin 325 mg once a day, atorvastatin calcium for Lipitor 40 mg at bedtime, carvedilol 3.125 mg twice a day and Plavix 75 mg once a day. FAMILY HISTORY: She has 2 sisters and 1 brother, older and healthy. Her father is still alive and healthy. Her mother in her 20s because of myocardial infarction and said that her mother's side have a strong history of premature coronary artery disease. SOCIAL HISTORY: She is single, has 2 daughters and 2 sons. She continues to smoke. Does not drink alcohol. She claims she is not using any drugs; however toxic screen was positive for amphetamine, methamphetamine, opiates and cannabinoids. She is currently unemployed. 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 PHYSICAL EXAMINATION: GENERAL: On arrival to the emergency room, she was clearly pale, but not jaundiced, cyanosed, no lymphadenopathy, no thyromegaly, no jugular venous distention. No lower limb edema. VITAL SIGNS: Her heart rate was 120, blood pressure was 110/72, temperature was 97.5, respiratory rate was 22 and oxygen saturation was 99%. HEAD, EYES, EARS, NOSE, AND THROAT: Normocephalic, atraumatic. NECK: Supple. HEART: Showed normal first and second heart sounds, no gallop, rub or murmur. CHEST: Clear to auscultation, no crepitation or rhonchi. ABDOMEN: Distended, soft, nontender. NEUROLOGIC: She was awake, alert, responding appropriately. All cranial nerves intact. She moves extremities without difficulty. She ambulates without assistance or assistive devices. LABORATORY DATA: Showed a white cell count of 7400, hemoglobin 6, hematocrit 20, MCV 69 and platelet count of 533,000 with normal manual differential. Serum sodium 143, potassium 4, chloride 105, bicarbonate 25, anion gap of 13, BUN 14, creatinine 0.8. Estimated GFR was 84 mL per minute. Her glucose was 101, calcium was 8.5, phosphorus 4, magnesium was 2.1. Total bilirubin, AST, ALT, alkaline phosphatase were normal. Her beta natriuretic peptide was 1090. Total protein was 7.6, albumin was 3.3. Urinalysis was unremarkable with no bacteria. Her toxic screen was negative. ASSESSMENT: Blood loss anemia due to dysfunctional uterine bleeding. The patient was admitted to transfuse 2 units of packed RBCs. Other medical problems include: A. Non-ST segment elevation myocardial infarction, status post cardiac catheterization that revealed proximal 90% left anterior descending lesion suspected status post PCI and drug-eluting stent to left anterior descending. B. Chronic systolic congestive heart failure, left ventricular ejection fraction of 35-40%. Recurrent blood loss anemia due to continuous vaginal bleeding and COVID positive about 4 weeks ago. She also has drug abuse and her urine drug screen was positive for amphetamine, marijuana and this time, her drug screen was negative. My plan is to transfuse 2 units of blood. We will contact her pharmacy to make sure we have the list of her medication and we will repeat her lab work again tomorrow. The ultimate solution for her anemia is obviously hysterectomy as she has completed her family. Apparently, Dr. Rebollar stated that she has to be at least 2 months out since she was diagnosed with COVID. Did not understand that, but apparently that is what is delaying her surgery. ANABEL ELAM: Sumit TID: [id number]
[2021-01-17] MEDS: medroxyPROGESTERone 5 MG TABLET PO SCH (20:33)
[2021-01-17] MEDS ORDERED: ATORVASTATIN CALCIUM 20 MG TABLET PO SCH (21:00)
[2021-01-18 06:19] VITALS: BP 96/62
[2021-01-18 06:19] LABS: BASO # 0.1 x10^3/uL (0.0-0.2); BASO % 1 % (0-3); EOS # 0.1 x10^3/uL (0.0-0.7); EOS % 2 % (0-3); HEMATOCRIT 24.2 % (36.0-47.0); HEMOGLOBIN 7.7 g/dL (12.0-15.5); LYMPH % 26 % (24-48); MEAN CORPUSCULAR HEMOGLOBIN 24 pg (25-35); MEAN CORPUSCULAR HGB CONC 32 g/dL (31-37); MEAN CORPUSCULAR VOLUME 75 fL (79-100); MONO # 0.7 x10^3/uL (0.0-1.1); MONO % 9 % (0-9); NEUT # 4.7 x10^3uL (1.8-7.7); NEUT % 63 % (31-73); PLATELET COUNT 375 x10^3/uL (140-400); RED BLOOD COUNT 3.24 x10^6/uL (3.50-5.40); RED CELL DISTRIBUTION WIDTH 26.5 % (11.5-14.5); WHITE BLOOD COUNT 7.6 x10^3/uL (4.0-11.0)
[2021-01-18 06:26] LABS: CREATININE 0.6 mg/dL (0.6-1.0); GFR 118.2; POTASSIUM 3.9 mmol/L (3.5-5.1)
[2021-01-18] MEDS: medroxyPROGESTERone 5 MG TABLET PO SCH (07:33)
[2021-01-18] MEDS ORDERED: CLOPIDOGREL BISULFATE 75 MG TABLET PO SCH (08:00)
[2021-01-18] MEDS ORDERED: ASPIRIN 325 MG TABLET PO SCH (08:00)
--- NOTE | 2021-01-18 13:15 | DS ---
DATE OF DISCHARGE: 01/18/2021 ATTENDING PHYSICIAN: Dr. Dinh. FINAL DISCHARGE DIAGNOSES: 1. Dysfunctional uterine bleeding. 2. Symptomatic anemia. 3. Transfusion of packed red cells to increase oxygen carrying capacity in this symptomatic patient. 4. Menorrhagia. 5. Recent non-ST elevation myocardial infarction. 6. Recent COVID exposure. HISTORY AND PHYSICAL: The patient is a 30-year-old female who has heavy vaginal bleeding for several months. She was initially diagnosed with severe anemia of 4.5 g. She was treated at [place], transfused, but at that time she had a non-STEMI myocardial infarction. She also was COVID positive. She was slated to see a instrument technician helper. She never had a chance to do that. She is about a month out from her [place]. At this time, she is still bleeding and she presented to the ED with a hemoglobin of 6.0 g/dL. PHYSICAL EXAMINATION: Please see the dictated note. PERTINENT LABORATORY AND X-RAY STUDIES: The admission hemoglobin was 6.0 g, transfusion of 2 units of packed cells increased to 7.7 g the next day, white count was normal. Chemistry panel was unremarkable. BNP was 1000. Toxicology screen was negative. Urine was clear. COURSE IN THE HOSPITAL: The patient was admitted. She was given 2 units of packed red cells transfusion to increase oxygen carrying capacity. She did well. She did better. On the second hospital day, her vital signs are stable as she was ready for discharge. I strongly suggested contacting the instrument technician helper she was referred to as well as establishing primary care physician. In addition, I recommended Vitron-C, but I broke it down into ferrous sulfate 325 b.i.d. and ascorbic acid 500 mg b.i.d. She has a couple more days of antibiotics to finish. For now, we have held the Plavix because of the bleeding. She is already a month out. She had her stent placed. She was discharged then from our hospital in stable condition with explicit drug and followup care. Total discharge time spent 39 minutes. MEÑO/HARDEEP/LILI DR: MEÑO/nahun TID: [id number]
== END 2021-01-18 09:25 | disposition home or self-care (01) | DRG 760 ==
LOC: ER 14:03 → 1 SOUTH 15:30 → OBSVTOIN 15:30
PROVIDERS: ADMIT Internal Medicine; ATTEND Internal Medicine
PROC: 30233N1 Transfusion of Nonautologous Red Blood Cells into Peripheral Vein, Percutaneous Approach (ICD-10-PCS; principal; 2021-01-17)
DX: N93.8 Other specified abnormal uterine and vaginal bleeding (principal); I50.22 Chronic systolic (congestive) heart failure; F17.200 Nicotine dependence, unspecified, uncomplicated; D50.0 Iron deficiency anemia secondary to blood loss (chronic); N92.0 Excessive and frequent menstruation with regular cycle; Z90.49 Acquired absence of other specified parts of digestive tract; Z95.5 Presence of coronary angioplasty implant and graft; Z90.710 Acquired absence of both cervix and uterus; Z82.49 Family history of ischemic heart disease and other diseases of the circulatory system; Z56.0 Unemployment, unspecified; Z98.51 Tubal ligation status; I25.2 Old myocardial infarction; Z86.16 Personal history of COVID-19
CPT/HCPCS: 36415; 36430; 80048; 80053; 80307; 81001; 83735; 83880; 84100; 84443; 84484; 85025; 86850; 86900; 86901; 86920; 93005; G0480; J3010; P9016; 99285-25; J7030